=== PATIENT | male | born 1965 | race Caucasian/White ===

== ENCOUNTER 2019-04-08 08:36 | Emergency (ER) | payer MEDICAID ==
[~2019-04-08] VITALS: Ht 182.9 cm; Wt 81.6 kg
[2019-04-08 08:41] VITALS: BP 159/96
[2019-04-08] MEDS ORDERED: NACL 0.9% 1,000 ML IV ONE (08:50)
[2019-04-08] MEDS ORDERED: ASPIRIN 81 MG TAB.CHEW PO ONE (08:50)
--- NOTE | 2019-04-08 08:51 | NUR ---
PT PLACED ON MONITOR AND GIVEN O2 VIA NC 2LPM
--- NOTE | 2019-04-08 08:51 | NUR ---
54 Y/O M C/C CHEST PAIN X 4 WEEKS. CURRENT CP ON STERNUM AREA RADIATING TO THE BACK, 5/10 PAIN, PULSATING SENSATION. PER PT IT GETS BETTER WHEN STANDING UP AND WALKING; AND WORSENS WHEN LAYING DOWN AT NIGHT, PT UNABLE TO SLEEP DUE TO DISCOMFORT WITH INCREASED PAIN 09/17. PT TAKEN ADVIL/TYLENOL WITH NO RELIEF. PT NKA. NO HX. NO RX. NO N/V/D. SIDE RAIL X1.
--- NOTE | 2019-04-08 08:58 | NUR ---
ERMD AT BEDSIDE
--- NOTE | 2019-04-08 09:00 | NUR ---
Dr. Kwan is evaluating the patient at bedside.
[2019-04-08 09:14] LABS: BASOPHILS % (AUTO) 0.8 % (0.0-2.0); EOSINOPHILS # (AUTO) 0.1 K/uL (0-0.4); EOSINOPHILS % (AUTO) 2.3 % (0.0-4.0); HEMATOCRIT 37.8 % (36-52); LYMPHOCYTES # (AUTO) 1.1 K/uL (2.0-11.5); LYMPHOCYTES % (AUTO) 25.1 % (20.5-51.1); MEAN CORPUSCULAR HEMOGLOBIN 31 pg (27-31); MEAN CORPUSCULAR HGB CONC 35 g/dL (33-37); MEAN CORPUSCULAR VOLUME 89.9 fL (80-94); MONOCYTES # (AUTO) 0.3 K/uL (0.8-1.0); MONOCYTES % (AUTO) 6.4 % (1.7-9.3); NEUTROPHILS # (AUTO) 2.8 K/uL (1.8-7.7); NEUTROPHILS % (AUTO) 65.4 % (42.2-75.2); PLATELET COUNT (AUTO) 143 K/uL (140-450); RED CELL DISTRIBUTION WIDTH 12.2 % (11.6-13.7); WHITE BLOOD COUNT (AUTO) 4.3 K/uL (4.8-10.8)
--- NOTE | 2019-04-08 09:23 | NUR ---
XRAY AT BEDSIDE
[2019-04-08 09:33] LABS: ALBUMIN 3.9 g/dL (3.4-5.0); ANION GAP 10.3 (8-16); CARBON DIOXIDE 30.5 mmol/L (21-32); CREATININE 0.8 mg/dL (0.6-1.3); POTASSIUM 3.8 mmol/L (3.5-5.1); TOTAL BILIRUBIN 0.4 mg/dL (0.0-1.0)
--- NOTE | 2019-04-08 09:56 | NUR ---
PT RESTING IN BED, SIDE RAIL X1
[2019-04-08] MEDS ORDERED: KETOROLAC 30 MG/ML VIAL IVP ONE (10:25)
[2019-04-08 12:08] VITALS: BP 132/83
--- NOTE | 2019-04-08 12:08 | NUR ---
Patient discharged with v/s stable. Written and verbal after care instructions given and explained. Patient alert, oriented and verbalized understanding of instructions. Ambulatory with steady gait. All questions addressed prior to discharge. ID band removed. Patient advised to follow up with PMD. Rx of TRAMADOL,MOTRIN given. Patient educated on indication of medication including possible reaction and side effects. Opportunity to ask questions provided and answered.
== END 2019-04-08 12:08 | disposition home or self-care (01) ==
LOC: MED 08:36
DX: R07.89 Other chest pain (principal); M54.9 Dorsalgia, unspecified
CPT/HCPCS: 36415; 71045; 80053; 84484; 85025; 93005; 96374; 99285; J1885; J7030; Q0092

== ENCOUNTER 2019-10-16 10:12 | Emergency (ER) | payer SELFPAY ==
[~2019-10-16] VITALS: Ht 182.9 cm; Wt 81.6 kg
[2019-10-16 10:17] VITALS: BP 150/68
--- NOTE | 2019-10-16 10:21 | NUR ---
AMB TO BED 06
--- NOTE | 2019-10-16 10:25 | NUR ---
PT'S BRUISING NOTED RIGHT POSTERIOR THIGH, PT DENIES INJURY/TRAUMA, RELATION TO WORK, OR ANTICOAGULATANTS INTAKE. STATES SWELLING TO THE AREA THAT HAS DECREASED AFTER PLACING ICE AND PLANT BASED MED TOPICALLY. TOOK IBUPROFEN THIS MORNING WHICH DECREASED THE PAIN. DENIES SOB OR CP. DENIES N/V/D; SKIN IS PINK/WARM/DRY; AAOX4 WITH EVEN AND STEADY GAIT; HR EVEN AND REGULAR; PT DENIES ANY FEVER, CP, SOB, OR COUGH AT THIS TIME; PATIENT STATES PAIN OF 5/10 AT THIS TIME; VSS; PATIENT POSITIONED FOR COMFORT; HOB ELEVATED; BEDRAILS UP X1; BED DOWN. ER MD MADE AWARE OF PT STATUS.
--- NOTE | 2019-10-16 10:57 | NUR ---
US IS AT BEDSIDE.
[2019-10-16 11:20] LABS: BASOPHILS % (AUTO) 0.9 % (0.0-2.0); EOSINOPHILS # (AUTO) 0.2 K/uL (0-0.4); EOSINOPHILS % (AUTO) 3.2 % (0.0-4.0); HEMOGLOBIN 10.8 g/dL (12.0-18.0); LYMPHOCYTES # (AUTO) 1.1 K/uL (2.0-11.5); MEAN CORPUSCULAR HEMOGLOBIN 32 pg (27-31); MEAN CORPUSCULAR HGB CONC 34 g/dL (33-37); MEAN CORPUSCULAR VOLUME 95.6 fL (80-94); MONOCYTES # (AUTO) 0.5 K/uL (0.8-1.0); MONOCYTES % (AUTO) 9.8 % (1.7-9.3); NEUTROPHILS # (AUTO) 2.9 K/uL (1.8-7.7); NEUTROPHILS % (AUTO) 62.1 % (42.2-75.2); PLATELET COUNT (AUTO) 115 K/uL (140-450); RED BLOOD CELL COUNT(AUTO) 3.35 MIL/uL (4.20-6.10); RED CELL DISTRIBUTION WIDTH 12.4 % (11.6-13.7); WHITE BLOOD COUNT (AUTO) 4.7 K/uL (4.8-10.8)
[2019-10-16 11:33] LABS: PROTHROMBIN TIME 9.9 secs (10.8-13.4)
[2019-10-16 11:39] LABS: ALBUMIN 3.5 g/dL (3.4-5.0); ANION GAP 11.1 (8-16); CARBON DIOXIDE 26.9 mmol/L (21-32); CREATININE 0.7 mg/dL (0.6-1.3); TOTAL BILIRUBIN 0.4 mg/dL (0.0-1.0)
[2019-10-16 12:09] VITALS: BP 138/60
--- NOTE | 2019-10-16 12:09 | NUR ---
Patient discharged with v/s stable. Written and verbal after care instructions given and explained. Patient alert, oriented and verbalized understanding of instructions. Ambulatory with steady gait. All questions addressed prior to discharge. ID band removed. Patient advised to follow up with PMD. Rx of Flexeril given. Patient educated on indication of medication including possible reaction and side effects. Opportunity to ask questions provided and answered.
== END 2019-10-16 12:09 | disposition home or self-care (01) ==
LOC: MED 10:12
DX: R25.2 Cramp and spasm (principal); D69.6 Thrombocytopenia, unspecified
CPT/HCPCS: 36415; 80053; 85025; 85610; 85730; 93971; 99284; Q0092